=== PATIENT | male | born 1940 | race Caucasian/White ===

== ENCOUNTER 2019-01-20 01:51 | Emergency (ER) | payer SELFPAY ==
[~2019-01-20] VITALS: Ht 180.3 cm; Wt 63.5 kg
== END 2019-01-20 04:39 | disposition home or self-care (01) ==
LOC: ED 01:51
DX: R41.0 Disorientation, unspecified (principal); F17.200 Nicotine dependence, unspecified, uncomplicated
CPT/HCPCS: 70450; 80053; 81001; 85025; 99285-25; G0480; J7030